=== PATIENT | female | born 1990 | race African-American/Black ===

== ENCOUNTER 2020-04-12 13:48 | Emergency (ER) | payer MEDICAID, SELFPAY ==
--- NOTE | 2020-04-12 13:56 | ED.DENTAL ---
HPI - Dental/Oral General Chief complaint: Dental/Oral Stated complaint: tooth pain Source: patient and RN notes reviewed Mode of arrival: ambulatory Limitations: no limitations History of Present Illness HPI Narrative: 30-year-old female presents to [facility] with complaints of dental pain. Left upper molar. Seen a dental provider in [place] and was told she needed an antibiotic and to go to for such. has swelling around the tooth. States that it has seen broken for months. Teeth map: 1. fractured tooth Related Data Allergies Allergy/AdvReac Type Severity Reaction Status Date / Time SEASONAL ALLERGENS Allergy Mild Nasal Uncoded 04/12/20 13:52 Discharge Review of Systems Review of Systems: Narrative: CONSTITUTIONAL: Denies fever, chills, or sweats. EYES: Denies visual changes, redness, or discharge. ENT: Denies rhinorrhea, congestion, sore throat, or otalgia. Dental fracture with gum swelling upper left CARDIOVASCULAR: Denies chest pain, palpitations, or edema. RESPIRATORY: Denies cough or dyspnea. GASTROINTESTINAL: Denies abdominal pain, nausea, vomiting, or diarrhea. GENITOURINARY: Denies dysuria or hematuria. SKIN: Denies rash or itching. MUSCULOSKELETAL: Denies back pain, joint pain, or myalgia. NEUROLOGIC: Denies headache, numbness, or weakness. PSYCHIATRIC: Denies anxiety or depression. All other systems reviewed are negative, except as documented in HPI. [facility] Social History Social History Gender identity (if verbalized by the patient): Female Comments At the time of my signature, I reviewed and agree with the nursing past medical, surgical, social, and family history. There is no relevant family history pertinent to the patient complaint. Exam Narrative: Exam Narrative: GENERAL: This is a well-nourished, well-developed patient, in no apparent distress. HEAD: normocephalic, atraumatic. EYES: PERRL. Sclera clear/white. Vision is grossly intact. EARS: External ears normal, auditory canals clear and without drainage, TMs normal without perforation. Hearing grossly intact. NOSE: External nose normal with no obvious nasal discharge, nares without redness, no rhinorrhea. THROAT: Mucous membranes moist, posterior pharynx clear. NECK: Neck supple, non-tender without lymphadenopathy, masses or thyromegaly. CARDIOVASCULAR: Regular rate and rhythm without murmurs, gallops, or rubs. RESPIRATORY: Clear to auscultation. Breath sounds equal bilaterally. No wheezes, rales, or rhonchi. GASTROINTESTINAL: Abdomen soft, non-tender, nondistended. Bowel sounds are active. No hepato-splenomegaly, or palpable masses. No guarding. SKIN: warm, intact with no suspicious lesions or rash, good texture and turgor. NEURO: awake, alert, and oriented to person, place and time. There were no obvious focal neurologic abnormalities. EXTREMITIES: No clubbing, cyanosis, or edema. No joint tenderness, effusion, or edema noted. No calf tenderness. Negative Homans sign bilaterally. BACK: Nontender without deformity or crepitance. No flank tenderness. HENND: Teeth image: 1. Fractured tooth, backside, decay noted. Swelling noted around tooth 13, 14,15 Course Vital Signs Vital signs: Vital Signs Temperature 98.3 F 04/12/20 14:05 Pulse Rate 96 04/12/20 14:05 Respiratory Rate 16 04/12/20 14:05 Blood Pressure 139/78 04/12/20 14:05 Pulse Oximetry 99 04/12/20 14:05 Temperature 98.3 F 04/12/20 14:05 Pulse Rate 96 04/12/20 14:05 Respiratory Rate 16 04/12/20 14:05 Blood Pressure 139/78 04/12/20 14:05 Pulse Oximetry 99 04/12/20 14:05 Reviewed MDM - Dental/Oral MDM Narrative Medical decision making narrative: Patient requesting order for Diflucan, patient states amoxicillin causes her yeast infections. Will send to pharmacy. Differential Diagnosis Differential diagnosis: Likely gingival abscess, dental caries, toothache, dental abscess and f
[2020-04-12 14:05] VITALS: BP 139/78; PULSE 96; RESP 16; TEMP 36.8; O2SAT 99
== END 2020-04-12 14:14 | disposition home or self-care (01) ==
PROVIDERS: Emergency Provider Nurse Practitioner
DX: K04.7 Periapical abscess without sinus (principal); K02.9 Dental caries, unspecified
CPT/HCPCS: 99213; G0463

== ENCOUNTER 2021-03-31 08:11 | Emergency (ER) | payer OTHER, MEDICAID, SELFPAY ==
[2021-03-31 08:25] VITALS: BP 138/88; PULSE 104; RESP 16; TEMP 37.1; O2SAT 99
--- NOTE | 2021-03-31 08:47 | ED.URI ---
HPI - URI/Sore Throat General Chief Complaint: Upper Respiratory Infection Stated Complaint: Sore Throat Time Seen by Provider: 03/31/21 08:48 Source: patient, RN notes reviewed and old records reviewed Mode of arrival: ambulatory Limitations: no limitations History of Present Illness HPI Narrative: 31 year old female who presents to [facility] care with complaints of sore throat since 0300 today while at work, Patient states that her throat is very sore, is painful to swallow. Patient reports that she has been taking Tylenol for her discomfort denies any known fevers. Patient does have history of sinus allergies and takes daily antihistamine. Patient has not had COVID or flu immunizations. MD elicited complaint: sore throat Related Data Home Medications Medication Instructions Recorded Confirmed loratadine [Claritin] 10 mg PO DAILY 03/31/21 03/31/21 Allergies Allergy/AdvReac Type Severity Reaction Status Date / Time SEASONAL ALLERGENS Allergy Mild Nasal Uncoded 03/31/21 08:45 Discharge Review of Systems Review of Systems: CONSTITUTIONAL: Denies fever, chills, or sweats. EYES: Denies visual changes, redness, or discharge. ENT: Positive for rhinorrhea, congestion, sore throat, bilateral otalgia. CARDIOVASCULAR: Denies chest pain, palpitations, or edema. RESPIRATORY: Denies cough or dyspnea. GASTROINTESTINAL: Denies abdominal pain, nausea, vomiting, or diarrhea. GENITOURINARY: Denies dysuria or hematuria. SKIN: Denies rash or itching. MUSCULOSKELETAL: Denies back pain, joint pain, or myalgia. NEUROLOGIC: Denies headache, numbness, or weakness. PSYCHIATRIC: Denies anxiety or depression. All systems reviewed & are unremarkable except as noted in HPI and below PMFSH Past Medical History Medical History (Updated 03/31/21 @ 09:04 by Katiana Corrales NP) Seasonal allergies Surgical History Surgical History (Updated 03/31/21 @ 09:00 by Katiana Corrales NP) No history of previous surgery Social History Social History (Updated 03/31/21 @ 09:00 by Katiana Corrales NP) Smoking status: Current every day smoker Alcohol intake: unknown Substance use: unknown Living arrangements: with family Gender identity (if verbalized by the patient): Female Comments At time of signature, agree with nursing past medical, surgical, social and family history. There is no relevant family history pertinent to the presenting complaint Exam Narrative: GENERAL: Well-appearing, well-nourished, and in no acute distress. HEAD: Normocephalic, atraumatic. EYES: PERRLA and EOMI. ENT: Nares red with some clear rhinorrhea no epistaxis. Mucous membranes moist.TM's normal, throat red with some tonsil redness and swelling no lesions or exudates noted. Post nasal drainage noted NECK: Supple.lymphadenopathy CHEST: Clear to auscultation. No respiratory distress.SAO2 99% on room air HEART: Regular rate and rhythm. No murmur heard. Normal peripheral pulses. ABDOMEN: Soft, nontender, nondistended, normal active bowel sounds. EXTREMITIES: Normal range of motion. No edema. SKIN: Warm, dry, no rash. NEURO: No focal deficits. Alert and oriented x3. Course Course Level of Care: Express Care Visit Vital Signs Vital signs: Vital Signs Temperature 37.1 C 03/31/21 08:25 Pulse Rate 104 H 03/31/21 08:25 Respiratory Rate 16 03/31/21 08:25 Blood Pressure 138/88 03/31/21 08:25 Pulse Oximetry 99 03/31/21 08:25 Temperature 37.1 C 03/31/21 08:25 Pulse Rate 104 H 03/31/21 08:25 Respiratory Rate 16 03/31/21 08:25 Blood Pressure 138/88 03/31/21 08:25 Pulse Oximetry 99 03/31/21 08:25 MDM - URI/Sore Throat Differential Diagnosis Differential diagnosis: Likely upper respiratory infection, sinusitis, viral infection, pharyngitis and other (tonsillitis) Medical Records Attestation: I reviewed the patient's medical records. Lab Data Attestation: I reviewed the patient's lab results. Lab results narrative: strep s
== END 2021-03-31 09:11 | disposition home or self-care (01) ==
PROVIDERS: Emergency Provider Registered Nurse
DX: J03.90 Acute tonsillitis, unspecified (principal); F17.200 Nicotine dependence, unspecified, uncomplicated
CPT/HCPCS: 87081; 87880; 99213; G0463

== ENCOUNTER 2021-07-07 16:43 | Emergency (ER) | payer OTHER, SELFPAY ==
[2021-07-07 16:51] VITALS: BP 142/82; PULSE 85; RESP 16; TEMP 36.8; O2SAT 100
--- NOTE | 2021-07-07 17:02 | ED.URI ---
HPI - URI/Sore Throat General Chief Complaint: Upper Respiratory Infection Stated Complaint: Congestion Time Seen by Provider: 07/07/21 16:44 Source: patient Mode of arrival: ambulatory Limitations: no limitations History of Present Illness HPI Narrative: Two 11-year-old female presents to [facility] with complaints of nasal congestion, sinus pressure, postnasal drip and dry cough for the past 7 to 10 days. Patient has been taking [id number] Claritin and Benadryl with minimal relief. Patient reports that her sister did test positive for Covid approximately 2 weeks ago. Patient is a smoker. Patient denies recent travel. Patient denies fever, bodies, chills, nausea, vomiting or diarrhea. MD elicited complaint: rhinorrhea, nasal congestion and sinus pain Onset (ago): week(s) (1) Consistency: constant Able to tolerate fluids by mouth: Yes Treatments prior to arrival: cold medicine Related Data Home Medications Medication Instructions Recorded Confirmed loratadine [Claritin] 10 mg PO DAILY 03/31/21 07/07/21 Allergies Allergy/AdvReac Type Severity Reaction Status Date / Time SEASONAL ALLERGENS Allergy Mild Nasal Uncoded 07/07/21 16:45 Discharge Review of Systems Constitutional: Constitutional: Denies chills, Denies fever(s) and Denies weakness ENT: Reports nasal congestion Comments: Sinus pressure, postnasal drip Respiratory: Respiratory: Denies chest congestion, Reports cough, Denies dyspnea and Denies wheezing Gastrointestinal: Gastrointestinal: Denies abdominal pain, Denies diarrhea, Denies nausea and Denies vomiting Integumentary/Breasts: Skin/Breast: Denies rash Neurologic: Denies dizziness PMFSH Past Medical History Medical History Seasonal allergies Surgical History Surgical History No history of previous surgery Social History Social History Smoking status: Current every day smoker Alcohol intake: unknown Substance use: unknown Gender identity (if verbalized by the patient): Female Comments At time of signature, I agree with nursing past medical, surgical, social and family history. There is no relevant family history pertinent to the presenting complaint. Exam Const: General: no acute distress and alert Nutritional Appearance: well nourished Orientation/consciousness: patient oriented x3 HENMT: Ears: external ears normal and TM's normal bilaterally General nose exam: Nasal discharge present clear Face and sinus: sinus tenderness frontal Mouth: Yes moist mucous membranes Teeth and gingiva: dentition normal Throat: uvula midline Other: Moderate nasal congestion noted. Mild clear postnasal drainage noted Neck: Neck: normal visual inspection Resp: Effort & Inspection: normal respiratory effort Auscultation: clear to auscultation bilaterally Cardio: Rate: regular rate Rhythm: regular rhythm Skin: General skin exam: normal color Rashes: no rashes Wounds: no wounds Neuro: General: patient oriented x3 and moves all extremities Speech: normal speech Psych: Appearance: grossly normal Mental Status: mental status grossly normal Affect: normal affect Attitude: cooperative Course Course Level of Care: Express Care Visit Vital Signs Vital signs: Vital Signs Temperature 36.8 C 07/07/21 16:51 Pulse Rate 85 07/07/21 16:51 Respiratory Rate 16 07/07/21 16:51 Blood Pressure 142/82 H 07/07/21 16:51 Pulse Oximetry 100 07/07/21 16:51 Temperature 36.8 C 07/07/21 16:51 Pulse Rate 85 07/07/21 16:51 Respiratory Rate 16 07/07/21 16:51 Blood Pressure 142/82 H 07/07/21 16:51 Pulse Oximetry 100 07/07/21 16:51 MDM - URI/Sore Throat MDM Narrative Medical decision making narrative: Patient agrees to take medications as prescribed. Patient agrees to proceed to the emergency r
== END 2021-07-07 17:30 | disposition home or self-care (01) ==
PROVIDERS: Emergency Provider Nurse Practitioner Family; PCP Family Medicine
DX: J01.90 Acute sinusitis, unspecified (principal); Z20.822 Contact with and (suspected) exposure to COVID-19; F17.200 Nicotine dependence, unspecified, uncomplicated
CPT/HCPCS: 87426; 99213; C9803; G0463

== ENCOUNTER 2024-04-14 16:45 | Emergency (ER) | payer BC, SELFPAY ==
--- NOTE | 2024-04-14 16:47 | ED_ITS ---
HPI - Female Genitourinary General Chief complaint: Urogenital-Female Stated complaint: Vaginal Problems Time Seen by Provider: 04/14/24 16:46 Source: patient Mode of arrival: ambulatory Limitations: no limitations History of Present Illness HPI Narrative: Rober is a 34-year-old female patient presenting to the clinic today with complaints of vaginal pain and discharge x2 days. She reports she is also having some back pain and lower abdominal discomfort. She has not been sexually active since October. He does used to voice but never inserts into the vagina. States she has pain to the outside of the vagina as well as brown discharge. Denies any odor. No fever or chills. Last menstrual period was approximately 1 week ago. No concern for sexually transmitted infections. Denies any urinary symptoms but does have pain when the urine passes on to the vulva. Related Data Home Medications ?Medication ?Instructions ?Recorded ?Confirmed ?Last Taken ?Type loratadine 10 mg tablet (Claritin) 10 mg PO DAILY 03/31/21 07/07/21 Unknown History Allergies Allergy/AdvReac Type Severity Reaction Status Date / Time SEASONAL ALLERGENS Allergy Mild Nasal Uncoded 04/13/24 03:31 Discharge Review of Systems Review of Systems: Pertinent positives per HPI. Patient denies any fever, chills, rash, headache, visual changes, dizziness, cough, runny nose, sore throat, shortness of breath, chest pain, palpitations, nausea, vomiting, diarrhea, constipation, or any urinary issues. PMFSH Past Medical History Medical History Seasonal allergies Surgical History Surgical History No history of previous surgery Social History Social History Smoking status: Current every day smoker Alcohol intake: unknown Substance use: unknown Living arrangements: with family Gender identity (if verbalized by the patient): Female Comments At the time of my signature, I reviewed and agree with the nursing past medical, surgical, social, and family history. There is no relevant family history pertinent to the patient complaint. Exam Narrative: General: Well-developed, well nourished, in no apparent distress Head: Normocephalic, atraumatic. Cardio: Regular rate and rhythm, s1 and s2 normal, no murmur appreciated. Resp: Clear to auscultation bilaterally, no rhonchi, rales, wheezing or rubs. Abdomen: Soft, pliable, bowel sounds present in all quadrants, non-tender to palpation, no CVAT tenderness. : Pelvic exam performed with (Kika REID) at bedside. Verbal consent obtained from patient. Normal external female genitalia without lesions or masses, Urinary meatus: patent without discharge, Vagina: No lesions or masses, clumpy brownish vaginal discharge Cervix: pink without mass, lesions, discharge, or tenderness. Course Course Emergency Course: Portions of this record may have been created with voice recognition software. Level of Care: Express Care Visit Vital Signs Vital signs: Vital signs reviewed MDM - Female Genitourinary MDM Narrative Medical decision making narrative: At the time of visit patient is resting comfortably on the exam table. Patient appears to be nontoxic. Labs: Gonorrhea, chlamydia, Trichomonas, genital culture, and BV swab her sent to the lab. Plan: I suspect patient has vaginitis this. Will place on Flagyl to cover for bacterial vaginosis. Patient has lower risk for STI as she has not had intercourse since October. Supportive measures were discussed with the patient and they voiced understanding discharge instructions and agrees to treatment plan. Return precautions reviewed Differential Diagnosis Differential diagnosis: Likely urinary tract infection, bacterial vaginosis, trichomoniasis, cervicitis, ovarian cyst, vaginitis, ruptured ovarian cyst, cyst of Bartholin's gland and cystitis Discharge Plan Discharge Clinical Impression: Vaginitis Qualifiers: Chronicity: acute Qualified Code(s): N76.0 - Acute vaginitis Patient Disposition: Home, Self-Care Condition: Stable Instructions: Antibiotic Form, Bacterial Vaginosis (ED), Vaginal Discharge (ED) Additional Instructions: Pelvic swabs for general culture, bacterial vaginosis, Trichomonas, chlamydia, and gonorrhea were sent to the lab I suspect you likely have vaginitis/bacterial vaginosis. Prescription for Flagyl was sent to pharmacy. May take Tylenol/Motrin as needed for pain May apply tucks pad to the affected area to help alleviate pain We have tested you for STIs in the clinic today. Avoid any sexual activity- includes oral, anal, or vaginal intercourse until you get results back and have completed any additional recommended treatment regimens. We will contact you if testing is positive and make sure your treatment was appropriate for the type of STI. If symptoms worsen after treatment recommend reevaluation with your PCP or Express care. Patient Language: Hong Konger Prescriptions: New metronidazole 500 mg tablet 500 mg PO Q12H 7 Days Qty: 14 0RF No Action loratadine [Claritin] 10 mg Tablet 10 mg PO DAILY Follow-up/Referrals: Ridge,Edelmira Arnett MD [Primary Care Provider] - Time of Disposition: 17:17 Quality NIHSS Nursing Documentation ED NIHSS nursing documentation: reviewed/agree
[2024-04-14 16:53] VITALS: BP 127/76; PULSE 125; RESP 18; TEMP 36.9; O2SAT 100
[2024-04-15 18:52] LABS: Trichomonas Vag PCR NOT DETECTED (NOT DETECTE)
[2024-04-15 19:15] LABS: Chlamydia trachomatis NOT DETECTED (NOT DETECTE); Neisseria gonorrhoeae PCR NOT DETECTED (NOT DETECTE)
[2024-04-17 08:28] LABS: Bacterial Vaginosis NEGATIVE (NEGATIVE)
== END 2024-04-14 17:30 | disposition home or self-care (01) ==
PROVIDERS: Emergency Provider Nurse Practitioner Family; PCP Family Medicine
DX: N76.0 Acute vaginitis (principal); Z11.3 Encounter for screening for infections with a predominantly sexual mode of transmission; F17.200 Nicotine dependence, unspecified, uncomplicated
CPT/HCPCS: 81513; 87070; 87491; 87591; 87661; 99213; G0463

== ENCOUNTER 2024-04-23 02:39 | Emergency (ER) | payer BC, SELFPAY ==
--- NOTE | ~2024-04-23 | US_ITS ---
Limited Abdominal Sonogram: Real-time sonographic imaging of the right upper quadrant was performed. Clinical History: Epigastric pain Findings: The liver appears normal with no evidence of mass lesion or bile duct dilatation. Main por bridgette vein demonstrates normal direction of flow. The gallbladder is partially distended, and appears n ormal with no evidence of gallstone or wall thickening. The common bile duct measures 4 mm. The visu alized pancreas, aorta, and IVC are unremarkable. Impression: No significant abnormality seen. Reviewed, dictated and finalized at location M. [employer] MACHINE OPERATOR Impression: No significant abnormality seen.
--- OUTSIDE RECORDS SUMMARY | 2024-04-23 02:42 | XMS_ITS | Clinical Summary ---
Author Organization [facility] Address [address] [place] [address]. [place], [place] [id number] [place] [id number] Care Team Providers Care Community Youth Secretary Name Role Phone Unavailable Primary Care Provider Unavailabl e Social History Tobacco Use Types Packs/Day Years Used Date Smoking Tobacco: Never Assessed Comments Unknown Sex and Gender Information Value Date Recorded Sex Assigned at Not on file Legal Sex Female 7:22 PM CDT Gender Identity Not on file Sexual Orientation Not on file Plan of Treatment Health Maintenance Due Date Last Done Comments Cervical Cancer Screening Pa p Smear (Age 30 to 64) Every 3 Years 1992 Annual Physical 1995 Hepatitis C 2010 DTaP, Tdap and Td Vaccines ( 1 - Tdap) 2011 Hepatitis B Vaccines (1 of 3 - 19+ 3-dose series) 2011 Cervical Cancer Screening Pa p with HPV Testing (Age 30 to 64) Every 5 Years 2022 Cervical Cancer Screening with HPV 2022 COVID-19 Vaccine (2023-2 5 season) 2023 Influenza Adult (#1) 2023 HPV Vaccines Aged Out No longer eligi ble based on patient's age to complete this topic Meningococcal B Vaccine Aged Out No l onger eligible based on patient's age to complete this topic Meningococcal Vaccine Aged Out No rafita yovani eligible based on patient's age to complete this topic Pneumococcal Vaccine: Pediat rics (0 to 5 Years) and At-Risk Patients (6 to 64 Years) Aged Out No longer eligible b ased on patient's age to complete this topic RSV Immunizations Under 20 Months Aged Out No longer eligible based on patient's age to complete this topic
[2024-04-23 03:00] VITALS: BP 127/84; PULSE 109; RESP 20; TEMP 36.2; O2SAT 100
[2024-04-23 05:32] LABS: Basophils Percent Auto 0.6 % (0.2-1.2); Eosinophils Percent Auto 0.4 % (0-4.4); Hematocrit 34.7 % (37.0-47.0); Immature Granulocyte Absolute 0.04 K/mm3 (0.00-0.031); Immature Granulocyte Percent A 0.8 % (0-0.5); Lymphocytes Absolute Auto 1.46 K/mm3 (0.9-3.2); Lymphocytes Percent Auto 28.2 % (18.3-44.2); Mean Corpuscular HGB Conc 28.8 g/dl (32-36); Mean Corpuscular Hemoglobin 23.3 pg (26-34); Mean Corpuscular Volume 80.9 fl (80-100); Mean Platelet Volume 9.4 fl (7.4-10.4); Monocytes Absolute Auto 0.3 K/mm3 (0.1-0.6); Monocytes Percent Auto 5.8 % (2.6-8.5); Neutrophils Absolute Auto 3.3 K/mm3 (1.3-6.7); Neutrophils Percent Auto 64.2 % (45.5-73.1); Platelet Count Result 375 k/mm3 (150-375); Red Blood Count 4.29 M/mm3 (4.2-5.4); Red Cell Distribution Width 15.9 % (11.5-14.5); White Blood Count 5.2 K/mm3 (4.5-10.0)
[2024-04-23 05:41] LABS: Alanine Aminotransferase 331 U/L (6-35); Albumin Level 3.6 g/dL (3.5-5.1); Alkaline Phosphatase 243 U/L (38-126); Anion Gap 10 mmol/L (4-12); Aspartate Amino Transferase 344 U/L (14-36); Bilirubin,Total 0.5 mg/dL (0.2-1.3); Blood Urea Nitrogen 8 mg/dL (7-17); Calcium 8.7 mg/dL (8.4-10.2); Carbon Dioxide 25 mmol/L (22-30); Chloride 102 mmol/L (98-107); Estimated CRCL calculation 107 ml/min; Estimated Glomerular Filt Rate > 60; Glucose 116 mg/dL (65-110); Lipase 89 U/L (23-300); Potassium 3.2 mmol/L (3.4-5.0); Sodium 137 mmol/L (137-145)
[2024-04-23 06:23] LABS: BEDSIDEPREGUCG Negative (Negative)
[2024-04-23 06:28] VITALS: BP 128/80; PULSE 93; RESP 15; O2SAT 99
[2024-04-23 06:45] LABS: Add Urine Microscopic? YES; Appearance Urine Cloudy (Clear); Bacteria Urine None Seen /hpf; Bilirubin Urine 1+ (Negative); Blood Urine Negative (Negative); Color Urine Dark Yellow (Yellow); Glucose Urine UA Negative (Negative); Ketones Urine Trace mg/dL (Negative); Leukocyte Esterase Ur 2+ LEU/UL (Negative); Need Manual Microscopic Reviewed; Nitrate Urine Positive (Negative); Protein Urine 2+ mg/dL (Negative); Squamous Epithelial Cell Urine Many /hpf (Few); pH Urine 5.5 (5.0-9.0)
--- OUTSIDE RECORDS SUMMARY | 2024-04-23 07:00 | XMS_ITS | Clinical Summary ---
Author Organization [facility] Address [address] [place] [address]. [place], [place] [id number] [place] [id number] Care Team Providers Care Museum Exhibit Technician Name Role Phone Unavailable Primary Care Provider [...]
--- NOTE | 2024-04-23 07:13 | ED.ABDPAIN ---
HPI - Abdominal Pain General Chief Complaint: Abdominal Pain Stated Complaint: Epigastric pain x2 days, on abx for tonsilitis Time Seen by Provider: 04/23/24 06:55 History of Present Illness HPI narrative: Patient is a 34-year-old female who presents to the ER with 2 days of epigastric pain. Began after starting Flagyl for vaginitis. No alleviating factors. Mild radiation to her back. Worse with lying down. No history of previous surgery. Denies any urinary frequency urgency or dysuria. Has mild headache due to her stress. Also reports sore throat that is worse with eating. Reports she was recently diagnosed with pharyngitis. Related Data Home Medications ?Medication ?Instructions ?Recorded ?Confirmed ?Last Taken ?Type loratadine 10 mg tablet (Claritin) 10 mg PO DAILY 03/31/21 07/07/21 Unknown History Allergies Allergy/AdvReac Type Severity Reaction Status Date / Time SEASONAL ALLERGENS Allergy Mild Nasal Uncoded 04/23/24 08:14 Discharge Review of Systems Review of Systems: All systems reviewed & are unremarkable except as noted in HPI and below Constitutional: Constitutional: Reports no additional constitutional complaints ENT: Reports system reviewed and no additional complaints, except as documented Cardiovascular: Cardiovascular: Reports no additional cardiovascular complaints Respiratory: Respiratory: Reports no additional respiratory complaints Gastrointestinal: Gastrointestinal: Reports no additional gastrointestinal complaints Musculoskeletal: Musculoskeletal: Reports no additional musculoskeletal complaints PMFSH Past Medical History Medical History Seasonal allergies Surgical History Surgical History No history of previous surgery Social History Social History Smoking status: Current every day smoker Alcohol intake: unknown Substance use: unknown Living arrangements: with family Gender identity (if verbalized by the patient): Female Exam Narrative: GENERAL: Fatigued-appearing, well-nourished, and in no acute distress. HEAD: Normocephalic, atraumatic. ENT: Mucous membranes moist. No tonsillar hypertrophy pulling soft palate ulcerations. CHEST: Clear to auscultation. No respiratory distress. HEART: Regular rate and rhythm. Normal peripheral pulses. ABDOMEN: Soft, mild right upper quadrant and epigastric tenderness, nondistended. EXTREMITIES: Normal range of motion. No edema. SKIN: Warm, dry, no rash. NEURO: Alert and oriented x3. PSYCH: Normal mood and affect. Course Course Emergency Course: Patient resting comfortably. Treated with morphine/Zofran/IV fluid. Patient reports that nephew recently had [id number] in last 2 weeks. Given patient's oral ulcerations and sore throat as well as liver function elevation it is felt that she likely has a viral hepatitis related to Coxsackie virus. Will give supportive care medications. Discussed with Dr. Chiang with GI who would be happy follow patient up in 1-2 weeks and perform repeat lab work. Patient educated on diagnosis and treatment plan and verbalized understanding. Vital Signs Vital signs: Vital Signs Temperature 97.2 F L 04/23/24 03:00 Pulse Rate 109 H 04/23/24 03:00 Respiratory Rate 20 04/23/24 03:00 Blood Pressure 127/84 04/23/24 03:00 Pulse Oximetry 100 04/23/24 03:00 Oxygen Delivery Room Air 04/23/24 03:00 Temperature 97.2 F L 04/23/24 03:00 Pulse Rate 95 04/23/24 08:21 Respiratory Rate 13 04/23/24 08:21 Blood Pressure 126/80 04/23/24 08:21 Pulse Oximetry 100 04/23/24 08:21 Oxygen Delivery Room Air 04/23/24 03:00 MDM - Abdominal Pain Lab Data 04/23/24 05:26 04/23/24 05:26 Labs: Lab Results 04/23/24 04/23/24 04/23/24 Range/Units 05:26 06:17 06:22 WBC 5.2 (4.5-10.0) K/mm3 RBC 4.29 (4.2-5.4) M/mm3 Hgb 10.0 L (12.0-15.0) g/dL Hct 34.7 L (37.0-47.0) % MCV 80.9 (80-100) fl MCH 23.3 L (26-34) pg MCHC 28.8 L (32-36) g/dl RDW 15.9 H (11.5-14.5) % Plt Count 375 D (150-375) k/mm3 MPV 9.4 (7.4-10.4) fl Immature Gran % (Auto) 0.8 H (0-0.5) % Neut % (Auto) 64.2 (45.5-73.1) % Lymph % (Auto) 28.2 (18.3-44.2) % [place] % (Auto) 5.8 (2.6-8.5) % Eos % (Auto) 0.4 (0-4.4) % Baso % (Auto) 0.6 (0.2-1.2) % Lymph # (Auto) 1.46 (0.9-3.2) K/mm3 [place] # (Auto) 0.3 (0.1-0.6) K/mm3 Eos # (Auto) 0.0 (0-0.3) K/mm3 Baso # (Auto) 0.0 (0.0-0.1) K/mm3 Abs Immat Gran (auto) 0.04 H (0.00-0.031) K/mm3 Absolute Neuts (auto) 3.3 (1.3-6.7) K/mm3 Absolute Nucleated RBC 0.000 (0.0-0.012) K/mm3 Nucleated RBC % 0.0 (0.0-0.2) % Sodium 137 (137-145) mmol/L Potassium 3.2 L (3.4-5.0) mmol/L Chloride 102 (98-107) mmol/L Carbon Dioxide 25 (22-30) mmol/L Anion Gap 10 (4-12) mmol/L BUN 8 (7-17) mg/dL Creatinine 0.68 L (0.7-1.0) mg/dL Estim Creat Clear Calc 107 ml/min Estimated GFR > 60 (59 - ) Glucose 116 H (65-110) mg/dL Calcium 8.7 (8.4-10.2) mg/dL Total Bilirubin 0.5 (0.2-1.3) mg/dL AST 344 H (14-36) U/L ALT 331 H (6-35) U/L Alkaline Phosphatase 243 H (38-126) U/L Total Protein 7.0 (6.3-8.2) g/dL Albumin 3.6 (3.5-5.1) g/dL Lipase 89 (23-300) U/L Urine Color Dark yellow (Yellow) Urine Appearance Cloudy H (Clear) Urine pH 5.5 (5.0-9.0) Ur Specific [place] 1.030 (1.001-1.035) Urine Protein 2+ H (Negative) mg/dL Urine Glucose (UA) Negative (Negative) mg/dL Urine Ketones Trace H (Negative) mg/dL Ur Blood (Man) Negative (Negative) Urine Nitrate Positive H (Negative) Urine Bilirubin 1+ H (Negative) Urine Urobilinogen 1.0 (<2.0) mg/dL Add Ur Microanalysis Reviewed Leukocyte Esterase Rfl 2+ H (Negative) JESSIE/UL Urine RBC 3-5 H (0-2) /hpf Urine WBC 11-20 H (0-3) /hpf Ur Squamous Epith Cells Many H (Few) /hpf Urine Bacteria None seen /hpf Urine Casts 11-20 POC Urine HCG, Qual Negative (Negative) Imaging Data Radiologist's impression: ITS Impressions Upper Quadrant Ultrasound 04/23/24 07:56 Impression: No significant abnormality seen. Discharge Plan Discharge Clinical Impression: Acute pharyngitis due to Coxsackie virus, Viral hepatitis Patient Disposition: Home, Self-Care Condition: Stable Instructions: Pharyngitis (ED) Additional Instructions: It is felt you have Coxsackie virus which is [id number] disease. This is causing her sore throat and also inflammation of the liver. Follow-up with GI for further evaluation. Return to the ER if you have worsening abdominal pain, your eyes turned yellow, or you have additional concerns. Patient Language: Hebrew Prescriptions: New lidocaine HCl [Lidocaine Viscous] 2 % solution 1 applic mucous membrane QID PRN (Reason: pain) Qty: 100 0RF ondansetron 4 mg tablet,disintegrating 4 mg PO Q6H PRN (Reason: nausea and vomiting) Qty: 10 0RF No Action loratadine [Claritin] 10 mg Tablet 10 mg PO DAILY metronidazole 500 mg tablet 500 mg PO Q12H 7 Days Qty: 14 0RF Follow-up/Referrals: Ridge,Edelmira Arnett MD [Primary Care Provider] - Bg Edmondson MD [Physician] - 2 Weeks
[2024-04-23] MEDS: SODIUM CHLORIDE 0.9% IV 1,000 ML 999 ML IV CONT (08:15)
[2024-04-23] MEDS: ONDANSETRON INJ 4 MG/2 ML VIAL IV PUSH (08:18)
[2024-04-23] MEDS: MORPHINE SULFATE (*CRX) 4 MG/ML INJ IV PUSH (08:19)
[2024-04-23 08:21] VITALS: BP 126/80; PULSE 95; RESP 13; O2SAT 100
[2024-04-23] MEDS: LIDOCAINE 2% VISC SOLN 15 ML UDC PO (08:28)
[2024-04-23 09:26] VITALS: BP 114/78; PULSE 98; RESP 19; O2SAT 100
[2024-04-23 09:27] VITALS: BP 114/78; PULSE 98; RESP 19; O2SAT 100
== END 2024-04-23 09:28 | disposition home or self-care (01) ==
PROVIDERS: Student in an Organized Health Care Education/Training Program; Emergency Provider Emergency Medicine; PCP Family Medicine
DX: J02.9 Acute pharyngitis, unspecified (principal); B33.8 Other specified viral diseases; K77 Liver disorders in diseases classified elsewhere; F17.200 Nicotine dependence, unspecified, uncomplicated
CPT/HCPCS: 36415; 76705; 80053; 81001; 81025; 83690; 85025; 96361; 96374; 96375; 99284; J2270; J2405; J7030

== ENCOUNTER 2025-03-24 16:54 | Emergency (ER) | payer BC, SELFPAY ==
[2025-03-24 17:02] VITALS: BP 156/98; PULSE 96; RESP 18; TEMP 36.6; O2SAT 100
--- NOTE | 2025-03-24 17:03 | ED.FEMALEGU ---
HPI - Female Genitourinary General Chief complaint: Urogenital-Female Stated complaint: Uti Symptoms Time Seen by Provider: 03/24/25 17:00 Source: patient Mode of arrival: ambulatory Limitations: no limitations History of Present Illness HPI Narrative: patient is a 35-year-old female who presents with 1 week low back pain along with 2 days of urinary urgency, frequency, dark colored urine. Patient has been taking a pre biotic with cranberry and has attempted to increased water intake the last 2 days. Denies any burning with urination, blood, fever, chills, nausea, vomiting, diarrhea. 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 denies any vaginal discharge or concern for STI MD elicited complaint: dysuria Related Data Allergies Allergy/AdvReac Type Severity Reaction Status Date / Time No Known Allergies Allergy Verified 03/24/25 16:57 Review of Systems Review of Systems: All systems reviewed & are unremarkable except as noted in HPI and below Constitutional: Constitutional: Denies chills, Denies fever(s), Denies headache(s), Denies malaise and Denies weakness Eyes: Eyes: Denies change in vision, Denies eye discharge and Denies irritation ENT: Denies otalgia, Denies headache(s), Denies nasal congestion, Denies nasal discharge, Denies sinus pain and Denies sore throat Cardiovascular: Cardiovascular: Denies chest pain, Denies edema, Denies palpitations and Denies dyspnea Respiratory: Respiratory: Denies cough and Denies dyspnea Gastrointestinal: Gastrointestinal: Denies abdominal pain, Denies diarrhea, Denies nausea and Denies vomiting Genitourinary: Genitourinary: Denies hematuria, Reports nocturia, Denies dysuria, Denies flank pain and Reports urinary urgency Musculoskeletal: Musculoskeletal: Reports back pain and Denies numbness Integumentary/Breasts: Skin/Breast: Denies pruritus and Denies rash Neurologic: Denies headache(s), Denies numbness and Denies weakness Psychiatric: Psychiatric: Reports no additional psychiatric complaints Endocrine: Endocrine: Denies palpitations PMFSH Past Medical History Medical History Seasonal allergies Surgical History Surgical History No history of previous surgery Social History Social History Smoking status: Current every day smoker Alcohol intake: unknown Substance use: unknown Living arrangements: with family Gender identity (if verbalized by the patient): Female Comments At time of signature, agree with nursing past medical, surgical, social and family history. There is no relevant family history pertinent to the presenting complaint. Exam Const: General: cooperative, healthy appearing, comfortable, no acute distress and well nourished Nutritional Appearance: well nourished Orientation/consciousness: patient oriented x3 HENMT: Head: normocephalic and atraumatic Ears: external ears normal Face/Nose/Sinus: Normal external nose present, Normal nares present and normal facial exam Face and sinus: normal facial exam Eyes: General: appearance normal, both eyes and all related structures Pupils: Equal, round and reactive pupils present EOM: EOMs intact bilaterally Neck: Neck: normal visual inspection, full ROM and supple Chest: Chest palpation & inspection: normal inspection of the chest Resp: Effort & Inspection: normal respiratory effort and able to speak in complete sentences Cardio: Rate: regular rate Rhythm: regular rhythm GI: Inspection: normal to inspection GI Palp: No abdominal tenderness and Yes Soft to palpation : General: Yes no CVA tenderness Back/Spine/Pelvis: Back: no CVA tenderness Thoracic/Lumbar Spine: pain with thoraco-lumbar ROM, paraspinal muscle tenderness bilaterally in the lower lumbar, No thoracic spinal tenderness and No lumbar spinal tenderness Skin: General skin exam: normal color and no rashes or lesions noted Neuro: General: patient oriented x3 and moves all extremities Cranial nerves: Yes Equal, round and reactive pupils present Extrem: General: normal to inspection and full ROM Psych: Appearance: grossly normal and well kempt Course Course Emergency Course: Patient is aware of diagnosis, understands and agrees to treatment plan. Anticipatory guidance given. Patient agrees to follow-up as directed and is aware of reasons to seek care at the emergency department. Portions of this record may have been created with voice recognition software Level of Care: Express Care Visit Vital Signs Vital signs: Vital Signs Temperature 36.6 C 03/24/25 17:02 Pulse Rate 96 03/24/25 17:02 Respiratory Rate 18 03/24/25 17:02 Blood Pressure 156/98 H 03/24/25 17:02 Pulse Oximetry 100 03/24/25 17:02 Oxygen Delivery Room Air 03/24/25 17:02 Temperature 36.6 C 03/24/25 17:02 Pulse Rate 96 03/24/25 17:02 Respiratory Rate 18 03/24/25 17:02 Blood Pressure 156/98 H 03/24/25 17:02 Pulse Oximetry 100 03/24/25 17:02 Oxygen Delivery Room Air 03/24/25 17:02 [facility] Narrative Medical decision making narrative: Based on symptoms, patient will be treated with antibiotics empirically. Will treat with steroids and muscle relaxers for low back strain Pt well hydrated appearing, in no respiratory distress, hemodynamically stable. Recommend supportive care. The patient is stable at time of discharge the clinical impression was discussed and the patient was given the opportunity to ask questions, which were addressed as completely as possible given the information available at present. Anticipatory guidance and return to care precautions were discussed and the importance of primary care follow-up was stressed and encouraged. The patient voiced understanding of the plan, indications to return, and the need for follow-up. Exam findings show no acute concerns or changes Patient is appropriate for outpatient treatment and follow-up. Differential Diagnosis Differential Diagnosis: Differential diagnostic considerations for female urogenital? issues include low back strain, urinary tract infection, bacterial vaginosis, cervicitis, ovarian cyst, vaginitis, STI exposure, ovarian torsion, ectopic , cyst of Bartholin?s gland, cystitis, dysmenorrhea.?? Medical Records I have reviewed the following patient records and this information was taken into consideration when formulating the assessment and plan.: previous clinic visits Lab Data [facility] Lab Attestation statement: I personally reviewed the patient's lab results. Labs: Lab Results 03/24/25 Range/Units 17:11 POC Urine Color [place] POC Urine Clarity Cloudy POC Urine pH 6.0 POC Ur Specif [place] 1.030 POC Urine Protein 1+ (Negative) POC Ur Glucose (UA) Negative (Negative) POC Urine Ketones Trace (Negative) POC Urine Blood Negative (Negative) POC Urine Nitrite Negative (Negative) POC Urine Bilirubin Negative (Negative) POC Urine Urobilinogen 0.2 POC U Leukocyte Esteras Negative (Negative) Discharge Plan Discharge Clinical Impression: Lumbar strain, Urinary frequency with urgency Patient Disposition: Home Condition: Stable Instructions: Low Back Strain (ED), Lower Back Exercises (ED) Additional Instructions: take steroids in your morning with food, take muscle relaxers every 8 hours as needed for muscle spasm. do not drive or make any important decisions while on this medication for it can make you drowsy. Take antibiotics as prescribed Exercise:Combine aerobic exercise, like walking or swimming, with specific exercises to keep the muscles in your back and abdomen strong and flexible.bed rest is not recommended. Proper Lifting:Be sure to lift heavy items with your legs, not your back. Do not bend over to pick something up. Keep your back straight and bend at your knees. Weight:Maintain a healthy weight. Being overweight puts added stress on your lower back. Avoid Smoking:Both the smoke and the nicotine cause your spine to age faster than normal. Proper Posture:Good posture is important for avoiding future problems. A therapist can teach you how to safely stand, sit, and lift. Use warm moist heat or ice to help with pain. Follow up with Primary provider in 2-3 days, This may become a chronic condition and they will be the one to help manage your pain and order additional testing. Follow-up with your doctor for further care and evaluation or seek ER if you develop problems with bladder/bowel function, weakness or loss of feeling in one or both of your legs. Patient Language: Ukrainian Prescriptions: New prednisone 20 mg tablet 40 mg PO DAILY 5 Days Qty: 10 0RF sulfamethoxazole-trimethoprim 800-160 mg tablet 1 tablet PO Q12H 3 Days Qty: 6 0RF baclofen 10 mg tablet 10 mg PO TID 5 Days Qty: 15 0RF Follow-up/Referrals: Ridge,Edelmira Arnett MD [Primary Care Provider] - 3 Days Stand Alone Forms: Work/School Release IP Time of Disposition: 18:30
[2025-03-24 17:22] LABS: EDUAAPPEAR Cloudy; EDUABILI Negative (Negative); EDUABLOOD Negative (Negative); EDUACOLOR1 Amber; EDUAGLUCOSE Negative (Negative); EDUAKETONE Trace (Negative); EDUALEUKO Negative (Negative); EDUANITRATE Negative (Negative); EDUAPH 6.0; EDUAPROTEIN 1+ (Negative); EDUASPGRAVITY 1.030; EDUAUROBILI 0.2
== END 2025-03-24 18:36 | disposition home or self-care (01) ==
PROVIDERS: Emergency Provider Nurse Practitioner Family; PCP Family Medicine
DX: S39.012A Strain of muscle, fascia and tendon of lower back, initial encounter (principal); X58.XXXA Exposure to other specified factors, initial encounter; R35.0 Frequency of micturition; R39.15 Urgency of urination; F17.200 Nicotine dependence, unspecified, uncomplicated
CPT/HCPCS: 81003; 87086; 99213; G0463